=== PATIENT | female | born 1935 | race Caucasian/White ===

== ENCOUNTER 2018-08-31 18:54 | Inpatient (IN) | payer OTHER ==
[~2018-08-31] VITALS: Ht 152.4 cm; Wt 36.7 kg
[~2018-08-31 18:54] MED LIST: ACET-1172 PO; ALPR0.5T PO; DICY20TA55 PO; LANS30CA53 PO; NEU300 PO; TRAZ-123 PO
[2018-08-31 19:11] VITALS: BP_SYST 156
--- NOTE | 2018-08-31 19:17 | NUR ---
Placed in room 04 . Placed on charge auditor, blood pressure machine and pulse oximeter. To gown for exam. Side rails up. Report given to ZAKIYA CRANDALL.
--- NOTE | 2018-08-31 19:18 | NUR ---
ER Dr. MITCHELL at bedside examining patient.
--- NOTE | 2018-08-31 19:22 | NUR ---
Patient brought to ER by BLS transport from home. Patient was found by a neighbor down on the porch with alcohol next to her, states "i drink a glass every day" patient C/O left hip pain 04/22, able to lift left knee, decreased ROM. Patient declines IV or IM pain medication. Hypertensive on the monitor, states "i dont take any BP medication at home" AAOx4, unlabored breathing, no rotation or shortening noted on left leg, no other signs of injury or trauma.
[2018-08-31 19:50] LABS: BASOPHILS % (AUTO) 0.5 % (0.0-2.0); EOSINOPHILS # (AUTO) 0.1 K/uL (0.0-0.4); HEMOGLOBIN 13.5 g/dL (12.0-16.0); LYMPHOCYTES # (AUTO) 1.4 K/uL (1.0-5.5); LYMPHOCYTES % (AUTO) 22.3 % (20.5-51.5); MEAN CORPUSCULAR HEMOGLOBIN 36 pg (27-31); MEAN CORPUSCULAR HGB CONC 36 % (32-36); MEAN CORPUSCULAR VOLUME 101 fL (79.0-98.0); MONOCYTES # (AUTO) 0.5 K/uL (0.0-1.0); MONOCYTES % (AUTO) 7.1 % (1.7-9.3); NEUTROPHILS # (AUTO) 4.4 K/uL (1.8-7.7); NEUTROPHILS % (AUTO) 68.1 % (40.0-70.0); PLATELET COUNT (AUTO) 261 K/uL (130-430); RED BLOOD CELL COUNT(AUTO) 3.74 MIL/uL (4.2-6.2); RED CELL DISTRIBUTION WIDTH 11.6 % (9.0-15.0); WHITE BLOOD COUNT (AUTO) 6.4 K/uL (4.8-10.8)
[2018-08-31] MEDS ORDERED: HYDROcodone/ACETAMIN 5-325 MG TAB (NORCO/ VICODIN) PO ONE (20:00)
--- NOTE | 2018-08-31 20:01 | NUR ---
Patient off the unit for CT via gurney
[2018-08-31 20:04] LABS: PROTHROMBIN TIME 9.9 SECS (9.5-12.5)
[2018-08-31 20:05] LABS: ANION GAP 9 (5-15); CHLORIDE 91 mmol/L (98-107); CREATININE 0.58 mg/dL (0.55-1.30); GLUCOSE 101 mg/dL (70-99); POTASSIUM 3.7 mmol/L (3.5-5.1); SODIUM SERUM 126 mmol/L (136-145); UREA NITROGEN, BLOOD 18 mg/dL (8-21)
[2018-08-31 20:11] LABS: ALANINE AMINOTRANSFERASE 23 U/L (12-78); ALBUMIN 3.7 g/dL (3.4-4.8); ASPARTATE AMINOTRANSFERASE 20 U/L (10-37); TOTAL BILIRUBIN 0.3 mg/dL (0.0-1.0)
--- NOTE | 2018-08-31 21:10 | NUR ---
Attempted to discharge patient. When assisting patient from the bed to the wheelchair, patient went limp while being held by the nurse. Patient eased back to the [facility]. VS check showed significant BP drop from previous reading. Patient unresponsive to verbal or tactile, patient with a stare. ER MD called at bedside.
--- NOTE | 2018-08-31 21:12 | NUR ---
Patient awake & alert, states "what ahppened" ER MD at bedside, daughter at bedside.
--- NOTE | 2018-08-31 21:13 | NUR ---
500ml FRANDY magaña verbal order from ER MD started
--- NOTE | 2018-08-31 21:13 | NUR ---
# 20 gauge angiocath placed to right upper arm. Use of asceptic technique. Opsite placed over site. Blood return noted. Flushed with 10 cc of normal saline. No vidence of infiltration noted. Patient tolerated well.
[2018-08-31] MEDS ORDERED: NACL 0.9% 1,000 ML IV ONE (21:30)
[2018-08-31] MEDS ORDERED: NS 500 ML IV ONE (21:30)
[2018-08-31] MEDS ORDERED: ACETAMINOPHEN 325 MG TABLET PO PRN (23:00)
[2018-08-31] MEDS ORDERED: ONDANSETRON HCL 4 MG/2 ML VIAL IVP PRN (23:00)
[2018-08-31] MEDS ORDERED: ENALAPRILAT DIHYDRATE 1.25 MG/ML VIAL IVP PRN (23:00)
--- NOTE | 2018-08-31 23:00 | NUR ---
PER MD MACEY PETERSON "CONTINUE ALL HOME MEDS" DID NOT WISH TO GO OTHER THE LIST OF MEDS.
--- NOTE | 2018-08-31 23:05 | NUR ---
Patient will be admitted to care of DR MACEY Christianson. Admitted to TELE unit. Will go to room 120B. Belongings list completed. Summary report printed. Report will be given at bedside.
[2018-08-31] MEDS ORDERED: LANS15CA14 PO (23:09)
--- NOTE | 2018-08-31 23:10 | NUR ---
Transfer to 120B via ACLS protocol. Licensed nurse present. IV present no signs or symptoms of infiltration.
[2018-08-31 23:15] VITALS: BP_SYST 116
[2018-08-31] MEDS ORDERED: DICYCLOMINE HCL 10 MG CAPSULE PO SCH (23:15)
[2018-08-31] MEDS ORDERED: ACETAMINOPHEN/CODEINE 300 MG-30 MG TABLET PO SCH (23:15)
--- NOTE | 2018-08-31 23:15 | NUR ---
ADMISSION NOTE Received patient from ER via gurney. Patient admitted with diagnosis of Syncope. Patient is awake, alert, oriented X 3. Patient oriented to hospital room, call light, toileting, pain management and safety-teach back done. Patient informed that RAZ John will be primary nurse and that their room number [id number]. Personal belongings checked and Belongings List documented. Call light within reach.
--- NOTE | 2018-08-31 23:25 | NUR ---
ROUNDS PATIENT IN BED, AWAKE, ALERT, ORIENTED X 4, VITALS STABLE, DENIES ANY PAIN AT THIS TIME. ADMISSION DATA AND ASSESSMENT DONE AND DOCUMENTED. SEE FLOWSHEET. PLAN OF CARE DISCUSSED AND PATIENT VERBALIZED UNDERSTANDING. ORIENTED PATIENT TO HER ROOM, PHONE ,TV AND CALL LIGHT. NEEDS ATTENDED TO. SAFETY AND FALL PRECAUTION MEASURES IN PLACED. BED IN LOW AND LOCKED POSITION. CALL LIGHT PLACED WITHIN REACH.
[2018-09-01 00:52] VITALS: BP_SYST 116
--- NOTE | 2018-09-01 04:12 | NUR ---
PATIENT RESTING: Patient resting quietly. No acute distress noted. Vital signs within normal range.
[2018-09-01 06:10] LABS: CHOLESTEROL 165 mg/dL (<200); HDL CHOLESTEROL 68 mg/dL (>55); LDL CHOLESTEROL 83 mg/dL (<100); TRIGLYCERIDES 44 mg/dL (30-150)
--- NOTE | 2018-09-01 06:25 | NUR ---
CLOSING NOTES PATIENT RESTING COMFORTABLY IN BED, VITALS STABLE, NO PAIN AT THIS TIME. ALL NEEDS ATTENDED TO. SAFETY AND FALL PRECAUTION MEASURES MAINTAINED. CALL LIGHT PLACED WITHIN REACH.
--- NOTE | 2018-09-01 07:15 | NUR ---
OPENING NOTE: MORNING REPORT WAS TAKEN FROM INTERPRETER NURSE. PATIENT IS AWAKE WITH NO SIGNS OF DISTRESS. PATIENT ON ROOM AIR. BED ALARM IS ON AND CALL LIGHT IS IN REACH. SIDE RAILS ARE UP AND BED IS IN LOWEST POSITION. ENCOURAGED PATIENT TO CALL IF SHE NEEDS HELP WITH ANYTHING. WILL CONTINUE TO MONITOR.
[2018-09-01 08:15] VITALS: BP_SYST 199
[2018-09-01] MEDS ORDERED: ENALAPRILAT DIHYDRATE 1.25 MG/ML VIAL IVP PRN (09:30)
--- NOTE | 2018-09-01 09:39 | NUR ---
PATIENT LEAVING TO GET CT OF HIP
[2018-09-01] MEDS ORDERED: CARVEDILOL 3.125 MG TABLET (COREG) PO ONE (09:45)
--- NOTE | 2018-09-01 10:35 | NUR ---
PATIENT BACK FROM CT. PATIENT THEN GOT ECHO AT BEDSIDE. GAVE PATIENT MORNING MEDICATIONS. PATIENT SWALLOWED WITH OUT DIFFICULTIES. DAUGHTER AT BEDSIDE. WILL CONTINUE TO MONITOR.
[2018-09-01] MEDS: FAMOTIDINE 20 MG TABLET PO SCH (10:37)
[2018-09-01] MEDS: ASPIRIN 81 MG TAB.CHEW PO SCH (10:37)
[2018-09-01] MEDS: ALPRAZolam 0.25 MG TABLET PO SCH ×2 (10:38→21:45)
[2018-09-01] MEDS: 0.45% NACL 1,000 ML IV SCH ×2 (10:38→15:28)
--- NOTE | 2018-09-01 11:43 | NUR ---
Physical Therapy evaluation pending further Md consult. Nurse reports that the CT scan of the pelvis is positive for fracture. Awaiting orders from Md regarding weight bearing precautions, etc.
[2018-09-01] MEDS: PANTOPRAZOLE SODIUM 40 MG TAB PO SCH ×2 (11:44→21:44)
--- NOTE | 2018-09-01 11:48 | NUR ---
NOTE: PATIENT LAYING IN BED WITH NO SIGNS OF DISTRESS. CHECKED PATIENT'S BP AND WENT DOWN TO 159/89. PATIENT NOT COMPLAINING OF PAIN AT MOMENT. SAID ONLY HAS PAIN WHEN MOVING. CALL LIGHT IS IN REACH. WILL CONTINUE TO MONITOR.
--- NOTE | 2018-09-01 11:55 | NUR ---
MD: DR SHAH PAGED TO LET HIM KNOW RESULTS OF CT.
[2018-09-01 12:02] VITALS: BP_SYST 159
--- NOTE | 2018-09-01 12:05 | NUR ---
ATTENDING MD DR SHAH WAS CALLED RE: CT RESULTS. SPOKE TO [place].
--- NOTE | 2018-09-01 12:33 | NUR ---
Nutrition Update Buck Scale 15 noted. Pt admitted for syncope. Diet: 2 gm Na BMI: 17.6kg/m2 RD to follow per nutrition care standards.
--- NOTE | 2018-09-01 12:50 | NUR ---
BLOOD PRESSURE: GAVE PRN VASOTEC. REASSESSED PATIENT'S BLOOD PRESSURE AND WAS 170/77. PATIENT NOT COMPLAINING OF ANY DISTRESS. WILL CONTINUE TO MONITOR AND WAIT FOR MD TO CALL BACK.
--- NOTE | 2018-09-01 14:27 | NUR ---
: DR MACARIO PAGEStephenie AGAIN. SPOKE TO ELIZABETH.
--- NOTE | 2018-09-01 14:33 | NUR ---
: CALLED BACK AND CHARGE NURSE READ HIM RESULTS. SAID HE WOULD TRANSMITTER SUPERVISOR WHO READ IT. ASKED DR FOR DVT PROPH BUT DID NOT ANSWER WHAT HE WANTED.
[2018-09-01] MEDS ORDERED: MORPHINE 4 MG/ML INJ. SYRINGE IVP PRN (14:45)
--- NOTE | 2018-09-01 14:46 | NUR ---
: DR SHAH CALLED BACK. ORDERS WERE RECEIVED AND READ BACK THEN PLACED IN ORDERS.
[2018-09-01] MEDS ORDERED: amLODIPine BESYLATE 10 MG TABLET PO ONE (15:00)
--- NOTE | 2018-09-01 15:06 | NUR ---
CONSULTATION PAGED/CALLED Reason for Consultation: Left Pelvic Fracture Person Who was Notified: Karina Consulting Physician: Dr. Curiel (sap enterprise portal consultant for [facility]) Hose Tubing Backer Specialty: Ortho Ordering Physician: Dr. Mckeon
[2018-09-01] MEDS: MORPHINE 4 MG/ML INJ. SYRINGE IVP PRN (15:54)
[2018-09-01 16:03] VITALS: BP_SYST 133
--- NOTE | 2018-09-01 16:29 | NUR ---
NOTE: PATIENT'S BLOOD PRESSURE WAS RECHECKED AFTER NORVAC AND WENT DOWN TO 134/70. PATIENT SAID HER PAIN IS DOING BETTER. PATIENT SITTING IN BED WITH NO SIGNS OF DISTRESS. DAUGHTER AT BEDSIDE. WILL CONTINUE TO MONITOR.
--- NOTE | 2018-09-01 18:00 | NUR ---
CLOSING NOTE: PATIENT SITTING IN BED WITH NO SIGNS OF DISTRESS. DAUGHTER AT BEDSIDE. DAUGHTER SAID THAT PATIENT SEEMS A LOOPY AFTER MORPHINE WAS GIVE. ENCOURAGED TO CALL IF THEY NEEDED ANYTHING FOR SAFETY. DAUGHTER WANTS US TO CALL HER IF DR COMES IN TO SEE PATIENT. WILL ENDORSE TO WINDOW COVERING SALES CONSULTANT NURSE THAT SHE WANTS TO TALK TO DR. PATIENT ON ROOM AIR. FLUIDS ARE INFUSING. BED ALARM IS ON AND CALL LIGHT IS IN REACH. WILL CONTINUE TO MONITOR AND GIVE REPORT TO WINDOW COVERING SALES CONSULTANT NURSE.
--- NOTE | 2018-09-01 19:40 | NUR ---
ROUDS PATIENT RESTING COMFORTABLY IN BED, NOT IN DISTRESS, VITALS STABLE. DENIES ANY PAIN AND DISCOMFORT AT THIS TIME. ASSESSMENT DONE AND DOCUMENTED. SEE FLOWSHEET. NEEDS ATTENDED TO. SAFETY AND FALL PRECAUTION MEASURES IN PLACED. BED IN LOW AND LOCKED POSITION. BED ALARM ON. CALL LIGHT PLACED WITHIN REACH.
[2018-09-01 19:54] VITALS: BP_SYST 140
--- NOTE | 2018-09-01 21:20 | NUR ---
MEDICATION DUE MEDICATIONS GIVEN SCHEDULED, TOLERATED WELL. WILL CONTINUE TO MONITOR.
[2018-09-01] MEDS: GABAPENTIN 300 MG CAPSULE PO SCH (21:44)
[2018-09-01] MEDS: traZODone HCL 50 MG TABLET (DESYREL) PO SCH (21:44)
[2018-09-01] MEDS: CARVEDILOL 3.125 MG TABLET (COREG) PO SCH (21:44)
[2018-09-01 22:59] VITALS: BP_SYST 151
--- NOTE | 2018-09-02 00:14 | NUR ---
PATIENT RESTING: Patient resting quietly. No acute distress noted. Vital signs within normal range.
[2018-09-02] MEDS: 0.45% NACL 1,000 ML IV SCH ×2 (02:25→23:36)
--- NOTE | 2018-09-02 04:10 | NUR ---
PATIENT RESTING: Patient resting quietly. No acute distress noted. Vital signs within normal range.
--- NOTE | 2018-09-02 06:55 | NUR ---
CLOSING NOTES DR. NEAL CALLED STATING HE PUT SOME ORDERS IN THE COMPUTER AND WILL DO SURGERY AT 3 PM, NOTED AND WILL ENDORSE THIS TO A.M. SHIFT NURSE. PATIENT STABLE AT THIS TIME, DENIES ANY PAIN AND DISCOMFORT. ALL NEEDS ATTENDED TO. CALL LIGHT PLACED WITHIN REACH.
--- NOTE | 2018-09-02 07:16 | NUR ---
OPENING NOTE: MORNING REPORT WAS TAKEN FROM MONOTYPE CASTER NURSE. PATIENT WAS LAYING ASLEEP IN BED WITH NO SIGNS OF DISTRESS. PATIENT ON ROOM AIR. PATIENT NOT COMPLAINING OF PAIN. BED ALARM IS ON AND CALL LIGHT IS IN REACH. SIDE RAILS ARE UP AND BED IS IN LOWEST POSITION. WILL CONTINUE TO MONITOR.
[2018-09-02 08:07] VITALS: BP_SYST 146
[2018-09-02] MEDS: amLODIPine BESYLATE 10 MG TABLET PO SCH (09:00)
[2018-09-02] MEDS: ALPRAZolam 0.25 MG TABLET PO SCH ×2 (09:00→21:35)
[2018-09-02] MEDS: FAMOTIDINE 20 MG TABLET PO SCH (09:00)
[2018-09-02] MEDS: PANTOPRAZOLE SODIUM 40 MG TAB PO SCH ×2 (09:00→21:34)
[2018-09-02] MEDS: CARVEDILOL 3.125 MG TABLET (COREG) PO SCH ×2 (09:00→21:35)
[2018-09-02] MEDS: ASPIRIN 81 MG TAB.CHEW PO SCH (09:00)
--- NOTE | 2018-09-02 09:31 | NUR ---
DROWSY: PATIENT DROWSY. SAT PATIENT UP TO DRINK WATER BUT STARTED COUGHING. HELD MORNING MEDICATIONS. PATIENT ALSO TRYING TO PULL OFF LEADS. WILL CONTINUE TO MONITOR.
[2018-09-02] MEDS: MORPHINE 4 MG/ML INJ. SYRINGE IVP PRN (11:17)
--- NOTE | 2018-09-02 11:28 | NUR ---
NOTE: PATIENT LAYING DOWN IN BED WITH NO SIGNS OF DISTRESS. SET PATIENT UP FOR SURGERY. PATIENT HAS TRACTION ON. GAVE PATIENT PAIN MEDICATION. DAUGHTER AND SON AT BEDSIDE. WILL CONTINUE TO MONITOR.
[2018-09-02 12:33] VITALS: BP_SYST 150
--- NOTE | 2018-09-02 14:10 | NUR ---
NOTE: PATIENT LAYING IN BED WITH NO SIGNS OF DISTRESS. PATIENT WAS WHEELED DOWN TO OR IN BED. DAUGHTER WENT WITH.
[2018-09-02] MEDS ORDERED: POLYMYXIN 500,000/BACIT.10,000 UNITS in NS IRR 1 L IR ONE (14:34)
--- NOTE | 2018-09-02 14:58 | NUR ---
Dietitian Recommendations * Recommend continuing NPO order per MD * Consider advance diet if/when medically appropriate * Consider oral nutrition supplement TID LP, RD Please refer to Nutrition Assessment for details.
[2018-09-02] MEDS ORDERED: MORPHINE SULFATE 10MG/10ML PF AMP SP SCH (15:30)
[2018-09-02] MEDS ORDERED: NALBUPHINE HCL 10 MG/ML AMP IVP PRN (15:30)
[2018-09-02] MEDS ORDERED: ONDANSETRON HCL 4 MG/2 ML VIAL IVP PRN ×3 (15:30→16:45)
[2018-09-02] MEDS ORDERED: DIPHENHYDRAMINE INJ 50 MG/ML VIAL IVP PRN (15:30)
[2018-09-02] MEDS ORDERED: NALOXONE HCL 0.4 MG/ML AMP (NARCAN) IVP PRN ×2 (15:30)
[2018-09-02] MEDS ORDERED: KETOROLAC TROMETHAMINE 60 MG/2 ML VIAL IM PRN (15:30)
[2018-09-02] MEDS ORDERED: fentaNYL CITRATE/PF 100 MCG/2 ML AMP IVP PRN ×2 (15:30)
[2018-09-02] MEDS ORDERED: HYDROcodone/ACETAMIN 5-325 MG TAB (NORCO/ VICODIN) PO PRN (16:45)
[2018-09-02] MEDS ORDERED: DIPHENHYDRAMINE HCL 25 MG CAPSULE PO PRN (16:45)
--- NOTE | 2018-09-02 17:36 | NUR ---
PATIENT BACK FROM OR. PATIENT ASLEEP WITH NO SIGNS OF DISTRESS. PATIENT HOOKED UP TO VITALS MACHINE. RUSSO HANGING TO GRAVITY. FLUIDS ARE INFUSING. PATIENT ON 2L NC. DAUGHTER AT BEDSIDE. BED ALARM IS ON AND SIDE RAILS ARE UP. CALL LIGHT IS IN REACH AND BED IS IN LOWEST POSITION. WILL CONTINUE TO MONITOR.
--- NOTE | 2018-09-02 18:42 | NUR ---
CLOSING NOTE: PATIENT LAYING DOWN IN BED WITH NO SIGNS OF DISTRESS. PATIENT ON 2L NC. DRESSING DRY AND INTACT. PATIENT HAS FLUIDS INFUSING. SCD'S ON. ICE PACK WAS TAKEN OFF HIP. WILL PUT NEW ONE ON IN 30 MIN. WILL CONTINUE TO MONITOR AND GIVE REPORT TO EXHAUST EMISSIONS INSPECTOR NURSE.
--- NOTE | 2018-09-02 18:57 | NUR ---
PAGED: DR CHOUDHURY PAGED FOR LOVENOX ORDER FOR AM.
--- NOTE | 2018-09-02 19:04 | NUR ---
DR CHOUDHURY CALLED BACK. ORDERED LOVENOX 30 MG SUB Q DAILY.
--- NOTE | 2018-09-02 19:33 | NUR ---
OPENING NOTE RECEIVED CARE OF PT AND BEDSIDE REPORT. PT RESTING IN BED, VSS, NO SIGNS OF ACUTE DISTRESS NOTED. LEFT HIP DRESSING DRY AND INTACT. IVF INFUSING, NO SIGNS OR SYMPTOMS OF INFILTRATION AT IV SITE. SAFETY PRECAUTIONS NOTED, BED IN LOWEST POSITION, CALL LIGHT IN REACH, BED ALARM ON. WILL CONTINUE TO MONITOR.
[2018-09-02 20:00] VITALS: BP_SYST 146
[2018-09-02] MEDS: GABAPENTIN 300 MG CAPSULE PO SCH (21:35)
[2018-09-02] MEDS: traZODone HCL 50 MG TABLET (DESYREL) PO SCH (21:35)
[2018-09-03] VITALS (14 sets, daily range): BP systolic 104–181
--- NOTE | 2018-09-03 00:30 | NUR ---
PRIORITY LAB DRAW SPOKE TO JESSE FROM LAB TO REQUEST PRIORITY AM LAB DRAW.
--- NOTE | 2018-09-03 02:23 | NUR ---
NURSING NOTE PT RESTING IN BED. NO SIGNS OF ACUTE DISTRESS NOTED. IVF INFUSING, NO SIGNS OF INFILTRATION AT IV SITE. SAFETY PRECAUTIONS ARE IN PLACE, BED IN LOWEST POSITION, SIDE RAILS UP, CLOSE TO NURSES STATION, CALL LIGHT WITH PATIENT. WILL CONTINUE TO MONITOR.
--- NOTE | 2018-09-03 03:46 | NUR ---
INCENTIVE SPIROMETER INCENTIVE SPIROMETER PLACED AT BEDSIDE. UNABLE TO TEACH AT THIS TIME DUE TO DROWINESS, HOWEVER WILL FOLLOW UP THROUGHOUT SHIFT. NO ACUTE DISTRESS NOTED. SAFETY PRECAUTIONS OBSERVED. WILL CONTINUE TO MONITOR.
[2018-09-03 06:28] LABS: ANION GAP 7 (5-15); CALCIUM 8.5 mg/dL (8.4-11.0); CHLORIDE 91 mmol/L (98-107); CREATININE 0.37 mg/dL (0.55-1.30); GLUCOSE 141 mg/dL (70-99); POTASSIUM 3.2 mmol/L (3.5-5.1); SODIUM SERUM 124 mmol/L (136-145); UREA NITROGEN, BLOOD 10 mg/dL (8-21)
[2018-09-03 06:29] LABS: BASOPHILS % (AUTO) 0.1 % (0.0-2.0); EOSINOPHILS % (AUTO) 0.6 % (0.0-4.0); HEMATOCRIT 30.3 % (36-48); LYMPHOCYTES # (AUTO) 0.4 K/uL (1.0-5.5); MEAN CORPUSCULAR HEMOGLOBIN 34 pg (27-31); MEAN CORPUSCULAR HGB CONC 33 % (32-36); MEAN CORPUSCULAR VOLUME 105 fL (79.0-98.0); MONOCYTES # (AUTO) 0.9 K/uL (0.0-1.0); MONOCYTES % (AUTO) 12.6 % (1.7-9.3); NEUTROPHILS # (AUTO) 6.1 K/uL (1.8-7.7); NEUTROPHILS % (AUTO) 80.7 % (40.0-70.0); PLATELET COUNT (AUTO) 169 K/uL (130-430); RED BLOOD CELL COUNT(AUTO) 2.91 MIL/uL (4.2-6.2); RED CELL DISTRIBUTION WIDTH 11.5 % (9.0-15.0); WHITE BLOOD COUNT (AUTO) 7.4 K/uL (4.8-10.8)
--- NOTE | 2018-09-03 06:46 | NUR ---
PENDING BENTYL MEDICATION ORDER 08/31/18 Patient has a pending medication order for Bentyl that needs clarification. Will endorse to day shift nurse to follow up with MD.
--- NOTE | 2018-09-03 06:59 | NUR ---
URINE SAMPLE COLLECTED Patient's urine sample was collected from callaway port due to patient having callaway catheter inserted in OR. Specimen sent to lab. Charge nurse, RAZ Contreras also made aware.
[2018-09-03 07:17] LABS: BILIRUBIN,URINE 1+ (NEGATIVE); BLOOD, URINE 3+ (NEGATIVE); CLARITY/URINE CLEAR (CLEAR); COLOR,URINE YELLOW (YELLOW); GLUCOSE,URINE TRACE (NEGATIVE); KETONES,URINE 2+ (NEGATIVE); LEUKOCYTE ESTERASE ,URINE NEGATIVE (NEGATIVE); NITRITE, URINE NEGATIVE (NEGATIVE); PROTEIN URINE 1+ (NEGATIVE)
--- NOTE | 2018-09-03 07:35 | NUR ---
received endorsement from marina nurse. patient still drowsy, but able to nod. but arousable. respiration is even and unlabored. on 2 liters of oxygen. O2 Saturation is 100%.bilateral lungs diminished at the bases, but clear. non productive cough noted. both legs are cool, but palpable pulses with doppler. Abdomen soft and non distended. bowel sounds present. has IV access on the right forearm #20 with 1/2 normal saline at 60cc/hr infusing on well. skin intact noted. has post op dressing on the left hip. with ice compress on it. dry/intact. no bleeding noted. has callaway catheter draining pia urine. no urine noted. on epic beacon analyst is sinus rythm 80, no ectopy noted. no pain noted.
--- NOTE | 2018-09-03 07:59 | NUR ---
CLOSING NOTE PT RESTING IN BED, NO SIGNS OF DISTRESS NOTED AT THIS TIME. DRESSING ON LEFT HIP DRY AND INTACT. IVF INFUSING, NO SIGNS OF INFILTRATION AT IV SITE. ENDORSED CARE TO DAY SHIFT RN, BEDSIDE REPORT GIVEN. SAFETY PRECAUTIONS OBSERVED.
[2018-09-03 08:03] LABS: BACTERIA,URINE RARE /HPF (None Seen); WBC,URINE 0-3 /HPF (0-3)
--- NOTE | 2018-09-03 08:35 | NUR ---
dr lianne glasgow, aware of pt's k level of 3.2.
[2018-09-03] MEDS ORDERED: KCL 40 mEq in 100 mL (PREMIX) 100 ML IV ONE (08:45)
[2018-09-03] MEDS ORDERED: ALBUTEROL SULFATE 0.083% 2.5 MG/3 ML VIAL.NEB INH PRN (08:45)
[2018-09-03] MEDS ORDERED: POTASSIUM CHLORIDE 40 MEQ in NS 250 ML IV ONE (09:00)
[2018-09-03] MEDS ORDERED: ENOXAPARIN SODIUM 30 MG/0.3 ML SYRINGE SUBCUT SCH (09:00)
--- NOTE | 2018-09-03 09:00 | NUR ---
patient moved to room 120-A. monitor patients status.
[2018-09-03] MEDS: ALPRAZolam 0.25 MG TABLET PO SCH ×2 (09:30→21:00)
[2018-09-03] MEDS: PANTOPRAZOLE SODIUM 40 MG TAB PO SCH ×2 (09:47→21:00)
[2018-09-03] MEDS: FAMOTIDINE 20 MG TABLET PO SCH (09:48)
[2018-09-03] MEDS: CARVEDILOL 3.125 MG TABLET (COREG) PO SCH ×2 (09:49→21:00)
[2018-09-03] MEDS: ASPIRIN 81 MG TAB.CHEW PO SCH (09:50)
[2018-09-03] MEDS: amLODIPine BESYLATE 10 MG TABLET PO SCH (09:50)
--- NOTE | 2018-09-03 10:16 | NUR ---
medication given with apple sauce. medication crushed. daughter at the bedside. hob elevated. no pain noted. patient is still very drowsy, but arousable. able to swallow good. monitor patients status.
--- NOTE | 2018-09-03 10:30 | NUR ---
Potassium IV 40 meq started at 67.5cc/hr infusing on well. continue to monitor patients status. neurovascular checked done and documented.
--- NOTE | 2018-09-03 11:14 | NUR ---
patient is resting hob elevated. on aspiration precaution noted.
--- NOTE | 2018-09-03 13:32 | NUR ---
DC Plan Request: Pt's Daughter Angela requests that in case pt is dc to facility , she prefers that pt is [facility] [place] [address] [phone] fax [phone]
--- NOTE | 2018-09-03 13:33 | NUR ---
ELEVATOR ATTENDANT AFTER HOURS OF HCP, ROSA ABAD WAS CALLED TO GIVE HER A HEADS UP ON THE DISCHARGE ORDER OF DR VAL NORTH: A NETWORK ORTHO TO FOLLOW UP THE CARE AND TREATMENT.
--- NOTE | 2018-09-03 13:36 | NUR ---
pt more alert now. pt answers questions not. tried giving pt some water. pt still coughing. will hold meal until pt is fully awake. Addendum: 09/03/18 at 1343 by Frank Simon RN correction: should read.. "pt more alert now. pt answers questions"
--- NOTE | 2018-09-03 14:55 | NUR ---
ATTENDING MD ACID PUMPER DR CHOUDHURY WAS CALLED DIRECTLY, RE: ABG RESULTS.
--- NOTE | 2018-09-03 14:58 | NUR ---
CONSULTATION PAGED/CALLED Reason for Consultation: [] RESP DISTRESS Person Who was Notified: [] JELENA Consulting Physician: [] DR CORREA (STAT CONSULT) Senior Ui Software Engineer Specialty: [] PULMONOLOGY Ordering Physician: [] DR Sammy CHOUDHURY
--- NOTE | 2018-09-03 15:05 | NUR ---
Dr Gorman was been called by Nida Haro, regarding low Oxygen Saturation. respiratory therapist was informed went to the patient and rechecked the O2SAt. 69. patient was cool to touch both arms/hands and legs. Dr Gorman made orders.
[2018-09-03] MEDS ORDERED: FUROSEMIDE 20 MG/2 ML VIAL IVP ONE (15:15)
[2018-09-03] MEDS ORDERED: FUROSEMIDE 20 MG/2 ML VIAL ONE (15:18)
--- NOTE | 2018-09-03 15:21 | NUR ---
Modified code no intubation No CPR ,clarify with daughter Angela Luz, patient will go to ICU for Bipap 100 %, close monitoring.
--- NOTE | 2018-09-03 15:50 | NUR ---
RESUMPTION OF CARE CARE RESUMED FROM TELEMETRY UNIT. PATIENT ADMITTED TO ICU2. RESPIRATORY THERAPIST AT BEDSIDE AND PLACE PATIENT ON BIPAP 100%. VITAL SIGNS STABLE. BELONGINGS SENT OVER. REPORT RECEIVED AT BEDSIDE. IV IS PATENT AND INFUSING. SCD'S IN PLACE. RUSSO IS DRAINING TO GRAVITY. BED IN LOWEST POSITION, SAFETY MEASURES IN PLACE, AND WILL CONTINUE TO MONITOR.
--- NOTE | 2018-09-03 15:53 | NUR ---
pt endorsed to special education curriculum specialistcassie escalante. pt was transferred to icu room 2. left message to pt's daughter. Addendum: 09/03/18 at 1620 by Frank Simon RN left message to pt's daughter about transfer.
--- NOTE | 2018-09-03 16:00 | NUR ---
DR. CORREA PAGED TO REPORT CHEST X-RAY RESULTS.
--- NOTE | 2018-09-03 16:07 | NUR ---
requested dr mcgrath's exchange to inform the md flowers pt's transfer to ICU.
[2018-09-03] MEDS: metroNIDAZOLE 500 mg/NS 100 ML IV SCH ×2 (17:09→21:08)
--- NOTE | 2018-09-03 17:09 | NUR ---
Dr. Gorman paged to ask for some ativan to help patient relax. patient trying to remove bipap. waiting call back
--- NOTE | 2018-09-03 18:10 | NUR ---
PAGE OUT FOR DR CHOUDHURY. S/Sheila MCCAULEY.
[2018-09-03] MEDS: LEVOFLOXACIN 250 MG/D5W 50 ML IV SCH (18:30)
--- NOTE | 2018-09-03 19:30 | NUR ---
TRANSFER OF CARE Received report from AM shift RN, Pt in bed, VSS with sinus tachycardia on the monitor. Tolerating BIPAP settings with 98% O2 saturation. IV on the DALTON 20g patent and no infiltration noted. Bilateral dorsalis pedis pulse noted and able to wiggle toes, warm with good circulation. Salgado catheter in placed with minimal output of clear yellow urine. Safety precaution observed, call light within reach. Will continue to monitor Pt.
[2018-09-03] MEDS: LORazepam 2 MG/ML VIAL IVP PRN (20:02)
[2018-09-03] MEDS ORDERED: ENOXAPARIN SODIUM 60 MG/0.6 ML SYRINGE SUBCUT SCH (21:00)
[2018-09-03] MEDS: GABAPENTIN 300 MG CAPSULE PO SCH (21:00)
--- NOTE | 2018-09-03 21:00 | NUR ---
MEDICATION Pt unable to take medication as Pt is drowsy and unable to swallow. Will continue to monitor Pt.
[2018-09-04] VITALS (24 sets, daily range): BP systolic 107–151
--- NOTE | 2018-09-04 | NUR ---
REASSESSMENT Pt in bed, no acute distress at this time. Will continue to monitor Pt. Turned and repositioned Pt.
--- NOTE | 2018-09-04 04:00 | NUR ---
REASSESSMENT Pt in bed, no acute distress at this time. Will continue to monitor Pt. Turned and repositioned Pt.
[2018-09-04] MEDS: metroNIDAZOLE 500 mg/NS 100 ML IV SCH ×3 (05:05→21:31)
--- NOTE | 2018-09-04 06:49 | NUR ---
CLOSING NOTES Pt in bed, no acute distress at this time. IV lines and skin checked. Will give report to oncoming RN via SBAR.
--- NOTE | 2018-09-04 07:00 | NUR ---
OPENING NOTE: RECEIVED REPORT FROM NIGHT NURSE. PATIENT IS RESTING COMFORTABLY IN BED. NO S/S OF DISTRESS OR SOB. PATIENT IS ASLEEP, NON-AROUSABLE. PATIENT ON BIPAP. IV IS PATENT AND INFUSING. SCD IN PLACE. VITALS SIGNS DOCUMENT ON VITAL SIGNS FLOWSHEET. SAFETY PRECAUTIONS IN PLACE, BED IN LOWEST POSITION, AND WILL CONTINUE TO MONITOR.
[2018-09-04 08:08] LABS: BASOPHILS % (AUTO) 0.1 % (0.0-2.0); EOSINOPHILS % (AUTO) 0.1 % (0.0-4.0); HEMOGLOBIN 8.1 g/dL (12.0-16.0); LYMPHOCYTES # (AUTO) 0.6 K/uL (1.0-5.5); LYMPHOCYTES % (AUTO) 8.3 % (20.5-51.5); MEAN CORPUSCULAR HEMOGLOBIN 35 pg (27-31); MEAN CORPUSCULAR HGB CONC 34 % (32-36); MEAN CORPUSCULAR VOLUME 103 fL (79.0-98.0); MONOCYTES # (AUTO) 1.1 K/uL (0.0-1.0); MONOCYTES % (AUTO) 17.3 % (1.7-9.3); NEUTROPHILS # (AUTO) 4.9 K/uL (1.8-7.7); NEUTROPHILS % (AUTO) 74.2 % (40.0-70.0); PLATELET COUNT (AUTO) 172 K/uL (130-430); RED BLOOD CELL COUNT(AUTO) 2.33 MIL/uL (4.2-6.2); RED CELL DISTRIBUTION WIDTH 11.7 % (9.0-15.0); WHITE BLOOD COUNT (AUTO) 6.6 K/uL (4.8-10.8)
[2018-09-04] MEDS: amLODIPine BESYLATE 10 MG TABLET PO SCH (08:53)
[2018-09-04] MEDS: CARVEDILOL 3.125 MG TABLET (COREG) PO SCH ×2 (08:53→20:49)
[2018-09-04] MEDS: ASPIRIN 81 MG TAB.CHEW PO SCH (08:53)
[2018-09-04] MEDS: FAMOTIDINE 20 MG TABLET PO SCH (08:53)
[2018-09-04] MEDS: PANTOPRAZOLE SODIUM 40 MG TAB PO SCH (08:53)
[2018-09-04] MEDS: ALPRAZolam 0.25 MG TABLET PO SCH ×2 (08:53→20:50)
[2018-09-04 09:04] LABS: ALANINE AMINOTRANSFERASE 16 U/L (12-78); ALBUMIN 2.3 g/dL (3.4-4.8); ANION GAP 9 (5-15); ASPARTATE AMINOTRANSFERASE 17 U/L (10-37); CALCIUM 8.7 mg/dL (8.4-11.0); CHLORIDE 94 mmol/L (98-107); CREATININE 0.52 mg/dL (0.55-1.30); GLUCOSE 128 mg/dL (70-99); POTASSIUM 3.7 mmol/L (3.5-5.1); SODIUM SERUM 128 mmol/L (136-145); TOTAL BILIRUBIN 0.6 mg/dL (0.0-1.0); UREA NITROGEN, BLOOD 19 mg/dL (8-21)
[2018-09-04] MEDS: 0.45% NACL 1,000 ML IV SCH (09:55)
[2018-09-04] MEDS: ENOXAPARIN SODIUM 60 MG/0.6 ML SYRINGE SUBCUT SCH (10:00)
--- NOTE | 2018-09-04 10:00 | NUR ---
NG TUBE/TUBE-FEEDING DR. CHOUDHURY STATED TO PUT IN AN ORDER FOR NG TUBE AND FEEDING, FAMILY REFUSED. NO ORDER INPUTED. FAMILY AWARE THAT PATIENT IS NPO STATUS AND THIS IS THE ONLY WAY TO GET NUTRIENTS TO PATIENT. VERBALIZED UNDERSTANDING AND CONFIRMED THAT PER PATIENT WISHES, NO ARTIFICIAL FEEDINGS OR INVASIVE PROCEDURES. NO NG TUBE OR FEEDING.
--- NOTE | 2018-09-04 10:20 | NUR ---
CHANGE IN BIPAP SETTINGS PATIENT WAS TITRATED DOWN ON BIPAP, LOWEST SETTING WAS 75%. PATIENT STARTED DESATURATED QUICKLY, LOWEST WAS 69%. PATIENT IN DISTRESS AND NOT TOLERATING. RT CHANGED BIPAP TO ORIGINAL SETTINGS OF 100%. DR. CORREA AT STATION AND MADE AWARE.
[2018-09-04] MEDS ORDERED: IPRATROPIUM/ALBUTEROL SULFATE 3 ML AMPUL.NEB (DUONEB) INH PRN (10:45)
--- NOTE | 2018-09-04 11:00 | NUR ---
FAMILY AT BEDSIDE. DR. CORREA SPOKE WITH FAMILY. UPDATE PROVIDED.
--- NOTE | 2018-09-04 11:40 | NUR ---
DR. NEAL AT BEDSIDE.
[2018-09-04] MEDS: MORPHINE 4 MG/ML INJ. SYRINGE IVP PRN ×2 (12:51→17:39)
[2018-09-04] MEDS: NACL 0.9% 1,000 ML IV SCH (12:57)
--- NOTE | 2018-09-04 13:00 | NUR ---
SURGICAL DRESSING REMOVED PER DR. FLYNN ORDERS AND STERILE 4x4 GAUZES APPLIED AND SECURED WITH TAPE. INCISION SITE CLEAN, NO ACTIVE BLEEDING.WILL MONITOR FOR BLEEDING.
--- NOTE | 2018-09-04 13:03 | NUR ---
P.T. NOTES RECEIVED CANCELLATION ORDER FOR P.T. EVAL; Pt TRANSFERRED TO ICU; WILL AWAIT NEW ORDER WHEN APPROPRIATE.
--- NOTE | 2018-09-04 13:54 | NUR ---
1300 UNABLE TO TITRATE PT FIO2. PT DESATS TO LOW 80'S. RN AWARE. Addendum: 09/04/18 at 1355 by Starr Triplett RT Amended: Links added.
[2018-09-04] MEDS: methylPREDNISolone SOD SUCC/PF 62.5 MG/ML VIAL IVP SCH ×2 (14:18→21:31)
--- NOTE | 2018-09-04 14:50 | NUR ---
MD Dr. Gorman phoned back and informed of pt's family refusal of NG tube. informed of pt's urinary out put, new orders received.
[2018-09-04] MEDS ORDERED: NS 250 ML IV ONE (15:00)
--- NOTE | 2018-09-04 16:37 | NUR ---
ENDORSEMENT OF CARE PASSED TO RAZ MURO, AND RAZ CAMPBELL. REPORT GIVEN.
--- NOTE | 2018-09-04 16:37 | NUR ---
Assumed care of pt. Received endorsement from Yana CRANDALL.
[2018-09-04] MEDS: LORazepam 2 MG/ML VIAL IVP PRN (17:42)
[2018-09-04] MEDS: LEVOFLOXACIN 250 MG/D5W 50 ML IV SCH (18:25)
--- NOTE | 2018-09-04 18:35 | NUR ---
CHG bath given
--- NOTE | 2018-09-04 19:19 | NUR ---
Endorsed plan of care to Elana CRANDALL via SBAR.
[2018-09-04] MEDS: GABAPENTIN 300 MG CAPSULE PO SCH (20:49)
--- NOTE | 2018-09-04 20:50 | NUR ---
PO MEDS Patient unable to take PO meds at this time due patient obtunded.
--- NOTE | 2018-09-04 22:27 | NUR ---
Dr. Gorman Talked to Dr. Gorman and reported that patient is restless and she ordered Ativan increased from 0.25ml to 0.5ml and frequency changed from Q6H to Q4H.
[2018-09-04] MEDS ORDERED: LORazepam 2 MG/ML VIAL IM PRN (22:45)
[2018-09-05] VITALS (24 sets, daily range): BP systolic 94–164
--- NOTE | 2018-09-05 02:06 | NUR ---
RT NOTES 0206 SWITCHED PT BIPAP FACE MASK (M) INTO FULL FACE MASK (SMALL), TO GIVE PT NOSE BRIDGE A BREAK FROM REDNESS. RN EFRA AWARE. SAME BIPAP SETTINGS 08/17, R15 FIO2 100%. PT PULLING ADEQUATE VT. 638 ML, PT SATURATION 100%. WILL CONTINUE TO MONITOR PT.
--- NOTE | 2018-09-05 02:31 | NUR ---
REDNESS ON BRIDGE OF NOSE Patient has redness on bridge of nose due to Bipap mask. Called RT Indira if she could adjust mask or get a small mask. Patient restless and keeps on moving head and try pulling on mask. Will continue to monitor.
--- NOTE | 2018-09-05 02:45 | NUR ---
MASK RT changed patient's Bipap mask into a full face mask which relieved pressure from bridge of nose. New mask dose not touch the nose bridge. Patient tolerating new mask well. Will continue to monitor.
[2018-09-05] MEDS: MORPHINE 4 MG/ML INJ. SYRINGE IVP PRN (02:49)
[2018-09-05] MEDS: metroNIDAZOLE 500 mg/NS 100 ML IV SCH (06:04)
[2018-09-05] MEDS: methylPREDNISolone SOD SUCC/PF 62.5 MG/ML VIAL IVP SCH (06:05)
--- NOTE | 2018-09-05 06:45 | NUR ---
CLOSING NOTE Patient sleeping in bed. Patient agitated earlier but was given PRN Ativan and is now calm. patient remains on Bipap. NS running at @50ml/hr. FC intact and total output for the shift is 425cc. Patient repositioned Q2H. Call light in place. Will endorse to am nurse.
[2018-09-05 07:04] LABS: BASOPHILS % (AUTO) 0.1 % (0.0-2.0); LYMPHOCYTES # (AUTO) 0.2 K/uL (1.0-5.5); LYMPHOCYTES % (AUTO) 3.6 % (20.5-51.5); MEAN CORPUSCULAR HEMOGLOBIN 35 pg (27-31); MEAN CORPUSCULAR HGB CONC 34 % (32-36); MEAN CORPUSCULAR VOLUME 103 fL (79.0-98.0); MONOCYTES # (AUTO) 0.5 K/uL (0.0-1.0); MONOCYTES % (AUTO) 8.2 % (1.7-9.3); NEUTROPHILS # (AUTO) 5.4 K/uL (1.8-7.7); NEUTROPHILS % (AUTO) 88.1 % (40.0-70.0); PLATELET COUNT (AUTO) 170 K/uL (130-430); RED CELL DISTRIBUTION WIDTH 11.6 % (9.0-15.0); WHITE BLOOD COUNT (AUTO) 6.1 K/uL (4.8-10.8)
--- NOTE | 2018-09-05 07:15 | NUR ---
AM ASSESSMENT Pt received laying in bed with eyes closed. Pt does not respond to painful stimuli. Pt is on BiPAP 08/17 BUR 15 FiO2 100%. Right upper arm #20g infusing NS @ 50cc/hr with no signs of infiltration. Bilateral PlexiPulse in place. Salgado cath in place draining pia urine to gravity.
[2018-09-05 07:43] LABS: HEMATOCRIT 20.7 % (36-48)
[2018-09-05 07:48] LABS: ANION GAP 8 (5-15); CALCIUM 8.7 mg/dL (8.4-11.0); CHLORIDE 99 mmol/L (98-107); CREATININE 0.48 mg/dL (0.55-1.30); GLUCOSE 146 mg/dL (70-99); POTASSIUM 3.8 mmol/L (3.5-5.1); SODIUM SERUM 133 mmol/L (136-145); UREA NITROGEN, BLOOD 25 mg/dL (8-21)
[2018-09-05 07:57] LABS: ALANINE AMINOTRANSFERASE 17 U/L (12-78); ALBUMIN 2.3 g/dL (3.4-4.8); ASPARTATE AMINOTRANSFERASE 18 U/L (10-37); TOTAL BILIRUBIN 0.5 mg/dL (0.0-1.0)
--- NOTE | 2018-09-05 08:50 | NUR ---
RT NOTES- OFF BIPAP 0830 PT WAS REMOVE FROM BIPAP PER DR. CORREA ORDER. AND PLACED ON 4L OXYMIZER. PT SP2O2 100%. TOLERATING OXYMIZER WELL. [address] CORREA TITRATION ORDER. TITRATED OXYMIZER TO 2L. KEEPING SPO2 BETWEEN 90-95%. RAZ CARUSO IS AWARE OF ALL CHANGES. WILL CONTINUE MONITORING.
--- NOTE | 2018-09-05 08:51 | NUR ---
O2 Pt changed from BiPAP to Oximizer, will continue to monitor per titration order.
[2018-09-05] MEDS: FAMOTIDINE 20 MG TABLET PO SCH (09:00)
[2018-09-05] MEDS: ALPRAZolam 0.25 MG TABLET PO SCH (09:00)
[2018-09-05] MEDS: ASPIRIN 81 MG TAB.CHEW PO SCH (09:00)
[2018-09-05] MEDS: amLODIPine BESYLATE 10 MG TABLET PO SCH (09:00)
[2018-09-05] MEDS: CARVEDILOL 3.125 MG TABLET (COREG) PO SCH (09:00)
[2018-09-05] MEDS: NACL 0.9% 1,000 ML IV SCH (09:14)
[2018-09-05] MEDS: ENOXAPARIN SODIUM 60 MG/0.6 ML SYRINGE SUBCUT SCH (09:15)
--- NOTE | 2018-09-05 12:20 | NUR ---
CHG Pt provided CHG with partial linen change.
[2018-09-05] MEDS ORDERED: MORPHINE I.V. DRIP 100 ML IV PRN (12:30)
[2018-09-05] MEDS ORDERED: MORPHINE PCA 50 mg/50 mL NS 50 ML IV PRN (13:34)
--- NOTE | 2018-09-05 14:40 | NUR ---
Morphine Drip initiated and unable to scan. Morphine drip initiated via 50mg syringe/FILLER SHREDDER HELPER pump @ 2mg/hr. Able to scan barcode but unable to save scan due to FILLER SHREDDER HELPER pump infusing on a basal rate only, 2 mg/hr, and not FILLER SHREDDER HELPER function. When the medication is scanned it asks for 4hr limit/ lockout interval for FILLER SHREDDER HELPER function, and since questions can't be answered, the scan can't be saved. Will call pharmacy for workaround. Secondary nurse, Jennifer charge nurse witnessed and verified medication and amount being administered.
--- NOTE | 2018-09-05 14:40 | NUR ---
Morphine Drip Started I witnessed the morphine drip started at 2 mg/hr on BOAT PULLER pump. Pt identified and morphine identified as well.
[2018-09-05] MEDS ORDERED: MORPHINE 4 MG/ML INJ. SYRINGE IVP PRN (15:15)
[2018-09-05] MEDS ORDERED: MORPHINE PCA 50 mg/50 mL NS 50 ML IV SCH (16:15)
--- NOTE | 2018-09-05 16:18 | NUR ---
Resting Pt resting in bed with eyes closed. No signs of distress noted. Will continue to monitor.
--- NOTE | 2018-09-05 19:45 | NUR ---
Closing Notes Pt endorsed to Kim CRANDALL using SBAR.
--- NOTE | 2018-09-05 20:00 | NUR ---
ASSESSMENT Pt non-verbal, obtunded. Oxygen in use 4L/min oxymizer. IVF infusing right upper arm, no redness or swelling noted @ site. Pt also on Morphine drip, for comfort. Dressing present left hip with small amount of old drainage. Plexi-pulses in use.
[2018-09-06] VITALS (18 sets, daily range): BP systolic 88–142
--- NOTE | 2018-09-06 06:00 | NUR ---
ASSESSMENT Pt on continuos Morphine drip, condition remains unchanged.
[2018-09-06] MEDS: NACL 0.9% 1,000 ML IV SCH (06:20)
--- NOTE | 2018-09-06 07:25 | NUR ---
AM ASSESSMENT Pt received laying in bed with eyes closed, pt is non-verbal and obtunded. Pt is receiving 4L via Oxymizer with oxygen saturation of 97% on in room monitor. IV right upper arm #20g infusing NS @ 50 cc/hr and morphine 2mg/hr with no signs of infiltration, redness or swelling. Left hip sx dressing in place with a small amount of dried blood that has been marked. Bilateral plexi-pulses in place. No signs of acute, will continue to monitor.
[2018-09-06] MEDS ORDERED: COMMUNICATION ORDER XX ONE (08:45)
[2018-09-06] MEDS ORDERED: MORPHINE IV SCH ×2 (09:15→14:22)
[2018-09-06] MEDS ORDERED: NS IV SCH ×2 (09:15→14:22)
--- NOTE | 2018-09-06 09:57 | NUR ---
Morphine Drip Per Dr. Mckeon morphine drip increased to 3mg/hr. Vital signs stable.
--- NOTE | 2018-09-06 11:18 | NUR ---
RT NOTES - PT ON 2L N/C PER DR. OCRREA'S ORDER PT PLACED ON 2L N/C AT THIS TIME. RAZ CARUSO MADE AWARE.
--- NOTE | 2018-09-06 14:20 | NUR ---
PATIENT BELONGINGS SENT WITH DAUGHTER ( PO BAEZA). ONLY YELLOW RING WITH PATIENT AT RIGHT 4TH FINGER.
--- NOTE | 2018-09-06 15:59 | NUR ---
Transferred Pt transferred off unit to TELE room 106. Pt endorsed to [place] RN using SBAR. All of pt's belongings taken by jahaira Miller.
--- NOTE | 2018-09-06 16:00 | NUR ---
Patient received unarousable, DNR status, on 2L nasal cannula on continuous pulse ox monitoring, IV line to Right upper arm patent and infusing well, NS at 50ml/hour and Morphine Drip at 3mg/hour, dressing to left hip noted with outline of saturation from previous shifts noted as well, continuing to monitor the patient.
--- NOTE | 2018-09-06 17:42 | NUR ---
Attempt to Call pharmacy to mix extra bag for Morphine drip, no answer, continuing to follow up.
--- NOTE | 2018-09-06 17:43 | NUR ---
Rounds patient resting in bed, breathing becoming more labored at this time, continuing comfort measures and continuing to monitor.
--- NOTE | 2018-09-06 18:27 | NUR ---
Closing note patient resting in bed, eyes closed, breathing is even still labored, all needs met, will endorse care to NOC shift nurse, bed in lowest position, three side rails up, fall precautions in place.
--- NOTE | 2018-09-06 19:12 | NUR ---
OPENING NOTES RECEIVED PATIENT ASLEEP IN BED. FULL DNR STATUS COMFORT MEASURES ONLY. MORPHINE DRIP AND IVF INFUSING ORDERED. IV LINE INTACT. PATIENT KEPT WARM WITH BLANKETS.
--- NOTE | 2018-09-06 22:00 | NUR ---
ROUNDS PATIENT CONDITION UNCHANGED. REMAINS ON MORPHINE DRIP ORDERED. 02 SAT 75% ON 02 2L NC. PATIENT REPOSITIONED EVERY 2 HOURS. KEPT WARM WITH BLANKETS.
[2018-09-07] VITALS: BP_SYST 80
--- NOTE | 2018-09-07 00:45 | NUR ---
ROUNDS PATIENT CURRENT VITAL SIGNS: BP 66/40 HR 42 02 SAT 47% RR 7. MORPHINE DRIP CONTINUOUSLY INFUSING ORDERED. IV LINE INTACT. KEPT WARM WITH BLANKETS.
--- NOTE | 2018-09-07 01:14 | NUR ---
PATIENT NOT BREATHING AT THIS TIME. UNABLE TO GET ANY VITAL SIGNS. PATIENT PRONOUNCED @ 0117. PATIENT DAUGHTER PO NOTIFIED. NO MORTUARY ARRANGEMENT AT HIS TIME. FAMILY WILL COME TO SEE PATIENT PER PO.
--- NOTE | 2018-09-07 01:24 | NUR ---
PAGED Paged foot and ankle surgeon physician, Dr. Benson @ [phone] to update on patients condition, spoke with Lizet.
--- NOTE | 2018-09-07 01:30 | NUR ---
NOTIFIED SPOKE WITH DR. ACOSTA FUR CLEANER FOR DR. CHOUDHURY. MADE AWARE PATIENT .
--- NOTE | 2018-09-07 01:38 | NUR ---
[employer] NOTIFIED BY PREET CRANDALL WITH CASE # [id number].
--- NOTE | 2018-09-07 04:20 | NUR ---
PT DAUGHTER PATIENT DAUGHTER HERE. CONTRACTED MORTUARY PROVIDED [employer]. DAUGHTER SIGNED RELEASE OF BODY REMAINS TO MORTUARY ASSIGNED.
--- NOTE | 2018-09-07 06:12 | NUR ---
BODY RELEASED PATIENT BODY RELEASED TO [facility]. DAUGHTER PO AWARE.
[2018-09-07] MEDS ORDERED: PROPOFOL 200MG/ 20ML VIAL (DIPRIVAN) IV ONE (14:15)
[2018-09-07] MEDS ORDERED: WATER FOR IRRIGATION,STERILE 1,000 ML IRRIG.SOLN IR ONE (14:15)
[2018-09-07] MEDS ORDERED: CLINDAMYCIN PHOSPHATE 600 mg/50mL D5W IV ONE (14:15)
[2018-09-07] MEDS ORDERED: MIDAZOLAM HCL 5 MG/5 ML VIAL IVP ONE (14:15)
[2018-09-07] MEDS ORDERED: LR 1,000 ML IV.SOLN IV ONE (14:15)
== END 2018-09-07 01:17 | disposition expired | DRG 480 ==
LOC: SED 18:54 → STU 22:48 → SIC 09-03 15:30 → SMU 09-06 15:53
PROVIDERS: ADMIT Internal Medicine; ATTEND Internal Medicine
PROC: 0QS706Z Reposition Left Upper Femur with Intramedullary Internal Fixation Device, Open Approach (ICD-10-PCS; principal; 2018-09-02 15:00)
PROC: 5A09457 Assistance with Respiratory Ventilation, 24-96 Consecutive Hours, Continuous Positive Airway Pressure (ICD-10-PCS; 2018-09-03)
DX: S72.142A Displaced intertrochanteric fracture of left femur, initial encounter for closed fracture (principal); J18.9 Pneumonia, unspecified organism; J96.01 Acute respiratory failure with hypoxia; E87.1 Hypo-osmolality and hyponatremia; J44.0 Chronic obstructive pulmonary disease with (acute) lower respiratory infection; J44.1 Chronic obstructive pulmonary disease with (acute) exacerbation; J98.11 Atelectasis; R64 Cachexia; I48.92 Unspecified atrial flutter; Z66 Do not resuscitate; S09.90XA Unspecified injury of head, initial encounter; D64.9 Anemia, unspecified; E87.6 Hypokalemia; G50.0 Trigeminal neuralgia; I10 Essential (primary) hypertension; Z96.649 Presence of unspecified artificial hip joint; F17.210 Nicotine dependence, cigarettes, uncomplicated; W18.39XA Other fall on same level, initial encounter; Z51.5 Encounter for palliative care; Z86.73 Personal history of transient ischemic attack (TIA), and cerebral infarction without residual deficits; Z88.0 Allergy status to penicillin; Z79.899 Other long term (current) drug therapy; Y93.89 Activity, other specified; Y92.89 Other specified places as the place of occurrence of the external cause; Y99.8 Other external cause status
CPT/HCPCS: 36415; 36600; 70450-TC; 71045; 72170-TC; 72192-TC; 76000; 80048; 80053; 80061; 81000-TC; 82550-TC; 82803-TC; 84484; 85025; 85610-TC; 86886; 86900; 86901; 86920; 87081; 87086; 93005; 93306; 94003; 94640; 94660; 94760; 99285; C1713; G0378; J1650; J1940; J1956; J2060; J2250; J2270; J2274; J2704; J2930; J3480; J3490; J7030; J7040; J7050; J7120; J7613